=== PATIENT | male | born 1995 | race Caucasian/White ===

== ENCOUNTER 2020-11-27 22:54 | Emergency (ER) | payer MEDICAID, SELFPAY ==
--- NOTE | ~2020-11-27 | XR_ITS ---
EXAMINATION: XR HAND, RIGHT CLINICAL INFORMATION: Pain and swelling COMPARISON: None TECHNIQUE: PA, lateral, and oblique views of the right hand. XR/XR hand RT min 3V FINDINGS/IMPRESSION: No acute fracture or dislocation. Healed fracture deformity of the fifth metacarpal with residual volar angulation of the fifth metacarpal head. Soft tissue swelling dorsal to the metacarpals. No radiopaque foreign body.
[2020-11-27 23:07] VITALS: BP 142/96; PULSE 134; O2SAT 96
[2020-11-27 23:15] VITALS: BP 128/96; PULSE 113; RESP 22; TEMP 36.1; O2SAT 98
--- NOTE | 2020-11-27 23:20 | ED_ITS ---
HPI - Alcohol General Chief Complaint: ETOH/Substance Use Stated Complaint: OD Time Seen by Provider: 11/27/20 23:20 History of Present Illness HPI narrative: Patient 25 years old positive ETOH positive oxycodone, positive marijuana. Found sleeping on the street. Woken up by PD sent in for further evaluation. Patient denies any suicidal homicidal ideation. Has no specific complaints. Related Data Allergies Allergy/AdvReac Type Severity Reaction Status Date / Time No Known Allergies Allergy Unverified 11/03/19 16:41 Review of Systems Review of Systems: No fever no chills no chest pain or shortness of breath no diaphoresis All systems reviewed otherwise negative [facility] Past Medical History Attestation statement: The following information was validated with the patient. Social History Social History Advance Directives: No Advance Directives Information Provided: No Physical Exam Vital Signs: Vital Signs: Last Vital Signs Temp 97 F 11/27/20 23:15 Pulse 113 H 11/27/20 23:15 Resp 22 H 11/27/20 23:15 BP 128/96 H 11/27/20 23:15 Pulse Ox 98 11/27/20 23:15 Body Mass Index 25.6 Appearance: Alert. Oriented X3. No acute distress. Eyes: Pupils equal, round and reactive to light. ENT: Pharynx normal. Neck: Normal inspection. Neck supple. No lymph nodes noted. No crepitus CVS: Normal heart rate and rhythm. Pulses normal. Normal S1 and S2 Respiratory: No respiratory distress. Breath sounds normal. No Wheezing. No rales Abdomen: Soft and nontender. No rigidity. No distention. good BS x4 Skin: Skin warm and dry. Normal skin color. Normal skin turgor. Extremities: No lower extremity edema. Neurovascular intact to all extremities. No Lacerations. No Rash Neuro: Oriented X 3. No motor deficit. No sensory deficit. Moving all extermities. No slurred speech MDM - Alcohol MDM Narrative Medical decision making narrative: Awaiting clinical sobriety. Will have patient contact family member. If no family can be reached. Patient will stay in the ED until he is fully sober peer Differential Diagnosis Differential diagnosis: Likely alcohol dependence Medical Records Attestation: I reviewed the patient's medical records. Lab Data Attestation: I reviewed the patient's lab results. Result diagrams: 11/28/20 00:14 11/28/20 00:14 Labs: Lab Results 11/28/20 11/28/20 11/28/20 Range/Units 00:14 00:14 00:14 WBC 3.4 L (4.8-10.8) X10*3/uL RBC 4.45 L (4.60-5.80) X10*6/uL Hgb 13.7 L (14.0-18.0) g/dl Hct 39.4 L (42-52) % MCV 88.5 (80-98) fL MCH 30.8 (27.0-33.0) pg MCHC 34.8 (31.0-36.0) g/dl RDW 12.3 (11.0-16.0) % Plt Count 205 (160-400) X10*3/uL MPV 9.5 (9.4-12.4) fL Immature Gran % (Auto) 0.3 (0.0-0.4) % Neut % (Auto) 48.1 (45-73) % Lymph % (Auto) 38.8 (20-40) % [place] % (Auto) 12.2 H (2-11) % Eos % (Auto) 0.3 (0-4) % Baso % (Auto) 0.3 (0-2) % Lymph # (Auto) 1.3 (1.2-4.9) X10*3/uL [place] # (Auto) 0.4 (0.1-1.2) X10*3/uL Eos # (Auto) 0.0 (0.0-0.4) X10*3/uL Baso # (Auto) 0.0 (0.0-0.2) X10*3/uL Abs Immat Gran (auto) 0.01 (0.00-0.03) X10*3/uL Absolute Neuts (auto) 1.7 L (2.0-8.3) X10*3/uL Absolute Nucleated RBC 0.000 (0.0-0.012) X10*3/uL Nucleated RBC % (auto) 0.0 (0.0-0.2) /100WBC Sodium 143 (135-145) mmol/L Potassium 3.5 (3.3-5.1) mmol/L Chloride 110 H (96-108) mmol/L Carbon Dioxide 25 (22-29) mmol/L Anion Gap 12 (12-20) BUN 6 L (9-16) mg/dL Creatinine 0.78 (0.5-1.4) mg/dL Estim Creat Clear Calc TNP Estimated GFR > 60 Random Glucose 87 (60-115) mg/dL Calcium 8.7 (8.4-10.2) mg/dL Total Bilirubin 0.2 (0.0-1.0) mg/dL AST 47 H (5-37) U/L ALT 36 (0-40) U/L Alkaline Phosphatase 172 H (39-117) U/L Total Protein 8.1 H (6.5-8.0) g/dL Albumin 4.6 (3.5-5.0) g/dL Urine Opiates Screen Not Detected (Not Detect) Urine Fentanyl Screen POSITIVE H (Not Detect) Ur Barbiturates Screen Not Detected (Not Detect) Ur Phencyclidine Scrn Not Detected (Not Detect) Ur Amphetamines Screen Not Detected (Not Detect) U Benzodiazepines Scrn Not Detected (Not Detect) Urine Cocaine Screen POSITIVE H (Not Detect) U Marijuana (THC) Screen POSITIVE H (Not Detect) Ethyl Alcohol mg/dL COVID-19 ([facility]) (Negative) COVID-19 Clin Com 11/28/20 11/28/20 Range/Units 00:14 01:27 WBC (4.8-10.8) X10*3/uL RBC (4.60-5.80) X10*6/uL Hgb (14.0-18.0) g/dl Hct (42-52) % MCV (80-98) fL MCH (27.0-33.0) pg MCHC (31.0-36.0) g/dl RDW (11.0-16.0) % Plt Count (160-400) X10*3/uL MPV (9.4-12.4) fL Immature Gran % (Auto) (0.0-0.4) % Neut % (Auto) (45-73) % Lymph % (Auto) (20-40) % [place] % (Auto) (2-11) % Eos % (Auto) (0-4) % Baso % (Auto) (0-2) % Lymph # (Auto) (1.2-4.9) X10*3/uL [place] # (Auto) (0.1-1.2) X10*3/uL Eos # (Auto) (0.0-0.4) X10*3/uL Baso # (Auto) (0.0-0.2) X10*3/uL Abs Immat Gran (auto) (0.00-0.03) X10*3/uL Absolute Neuts (auto) (2.0-8.3) X10*3/uL Absolute Nucleated RBC (0.0-0.012) X10*3/uL Nucleated RBC % (auto) (0.0-0.2) /100WBC Sodium (135-145) mmol/L Potassium (3.3-5.1) mmol/L Chloride (96-108) mmol/L Carbon Dioxide (22-29) mmol/L Anion Gap (12-20) BUN (9-16) mg/dL Creatinine (0.5-1.4) mg/dL Estim Creat Clear Calc Estimated GFR Random Glucose (60-115) mg/dL Calcium (8.4-10.2) mg/dL Total Bilirubin (0.0-1.0) mg/dL AST (5-37) U/L ALT (0-40) U/L Alkaline Phosphatase (39-117) U/L Total Protein (6.5-8.0) g/dL Albumin (3.5-5.0) g/dL Urine Opiates Screen (Not Detect) Urine Fentanyl Screen (Not Detect) Ur Barbiturates Screen (Not Detect) Ur Phencyclidine Scrn (Not Detect) Ur Amphetamines Screen (Not Detect) U Benzodiazepines Scrn (Not Detect) Urine Cocaine Screen (Not Detect) U Marijuana (THC) Screen (Not Detect) Ethyl Alcohol 258 mg/dL COVID-19 ([facility]) Negative (Negative) COVID-19 Clin Com See Note Discharge Plan Discharge Clinical Impression: Alcoholic intoxication, Opioid abuse Patient Disposition: Home, Self-Care Instructions: Abuse of Alcohol (ED) Referrals: [facility] [Primary Care Provider] - 2 days
[2020-11-28 00:19] LABS: MANUAL DIFF FLAG NO
[2020-11-28 00:20] LABS: Basophils Percent Auto 0.3 % (0-2); Eosinophils Percent Auto 0.3 % (0-4); Hematocrit 39.4 % (42-52); Hemoglobin 13.7 g/dl (14.0-18.0); Imm Gran Abs Auto 0.01 X10*3/uL (0.00-0.03); Imm Gran Pct Auto 0.3 % (0.0-0.4); Lymphocytes Absolute Auto 1.3 X10*3/uL (1.2-4.9); Lymphocytes Percent Auto 38.8 % (20-40); Mean Corpuscular HGB Conc 34.8 g/dl (31.0-36.0); Mean Corpuscular Hemoglobin 30.8 pg (27.0-33.0); Mean Corpuscular Volume 88.5 fL (80-98); Mean Platelet Volume 9.5 fL (9.4-12.4); Monocytes Absolute Auto 0.4 X10*3/uL (0.1-1.2); Monocytes Percent Auto 12.2 % (2-11); Neutrophils Absolute Auto 1.7 X10*3/uL (2.0-8.3); Neutrophils Percent Auto 48.1 % (45-73); Platelet Count 205 X10*3/uL (160-400); Red Blood Count 4.45 X10*6/uL (4.60-5.80); Red Cell Distribution Width 12.3 % (11.0-16.0); White Blood Count 3.4 X10*3/uL (4.8-10.8)
[2020-11-28 00:34] LABS: Ethanol 258 mg/dL
[2020-11-28 00:38] LABS: Alanine Aminotransferase 36 U/L (0-40); Albumin Level 4.6 g/dL (3.5-5.0); Alkaline Phosphatase 172 U/L (39-117); Amphetamine Screen Urine Not Detected (Not Detect); Anion Gap 12 (12-20); Aspartate Amino Transferase 47 U/L (5-37); Barbiturates, Urine Not Detected (Not Detect); Benzodiazepines Screen Urine Not Detected (Not Detect); Bilirubin Total 0.2 mg/dL (0.0-1.0); Blood Urea Nitrogen 6 mg/dL (9-16); Calcium 8.7 mg/dL (8.4-10.2); Cannabinoid Screen Urine POSITIVE (Not Detect); Carbon Dioxide 25 mmol/L (22-29); Chloride 110 mmol/L (96-108); Cocaine Screen Urine POSITIVE (Not Detect); Estimated Glomerular Filt Rate > 60; Fentanyl, urine POSITIVE (Not Detect); Glucose Random 87 mg/dL (60-115); Opiate Screen Urine Not Detected (Not Detect); Phencyclidine Screen Urine Not Detected (Not Detect); Potassium 3.5 mmol/L (3.3-5.1); Sodium 143 mmol/L (135-145); Total Protein 8.1 g/dL (6.5-8.0)
[2020-11-28 01:05] VITALS: BMI 25.6
[2020-11-28] MEDS: LORazepam 1 MG TABLET 2 MG PO ×2 (01:31→11:48)
[2020-11-28 01:51] LABS: COVID-19 Test Negative (Negative)
[2020-11-28 02:47] VITALS: BP 122/78; PULSE 84; RESP 18; TEMP 36.6; O2SAT 96
--- NOTE | 2020-11-28 06:21 | PC.NURSE ---
Patient is currently sleeping, patient was transferred from main ED due to elopement risk, patient is here in POD till he izabella out. patient is not crises patient, Patient will be discharged in the morning,
--- NOTE | 2020-11-28 06:57 | PC.NURSE ---
patient appears to remain asleep at present with even unlabored breaths patient appears in no distress
[2020-11-28 09:50] VITALS: RESP 16
--- NOTE | 2020-11-28 10:27 | MHC.CARE ---
Patient is a 25 y/o, Turkmen speaking male who arrived at the [facility] [place] ED via ambulance after being found by the police department sleeping on the street. He was awoken by PD and sent to this facility for further evaluation.? ?Pt is positive for fentanyl, cocaine, marijuana and ETOH.? Pt has been medically cleared and is being assessed by the CARE Team to determine appropriate treatment recommendations. Pt is alert and oriented x4, but did require numerous prompts to get this pt awake and to remain awake during the screening.? Pt appears disheveled, is dressed in hospital attire, and appears his stated age.? Pt is minimally engaged in the assessment and appears to be actively trying to ignore CARE Team.? Pt is not help seeking, stating he ?doesn?t need anything?.? At times, pt pulls his blanket over his head, and only after several prompts will begin responding again.? Pt eye contact is intermittent, often looking away and/or covering his face with a blanket.? ?His speech is mumbled and slow.? Pt makes a hand gesture in response to how his sleep and appetite are, indicating ?ok? or ?varies?.? Pt declined to discuss his mood.? Pt?s affect is flat, appearing as though he is tired.? He denies SI, HI, and AVH.? Pt denied SI/HI upon arrival yesterday evening.? Pt does not appear to be responding to internal stimuli, nor does he appear delusional or psychotic.? Insight, judgement, memory, concentration and Impulse control cannot be effectively gauged as pt appears to be an unwilling participant in this screening.? CARE Team requested that the Recovery team meet with pt, which they did.? Pt?s level of engagement with Recovery Team was similar to his level of engagement with CARE Team. Pt does not meet inpatient level of care nor does he appear to be in crisis. ?
[2020-11-28] MEDS: Ondansetron ODT 4 MG TAB.RAPDIS TRANSLINGU (11:36)
--- NOTE | 2020-11-28 12:15 | MHC.RECOVSUP ---
Recovery Support note: Patient is a 25 year old Malagasy speaking male who presented to [facility] [place] found sleeping outside. Patient was cleared by CARE Team. This insurance underwriter sales and Environmental Engineering Assistant met with patient to discuss his substance use and treatment options. Patient was vague, reporting he drinks enough anywhere from 1-10 beers daily. Patient reports cocaine use and denies opiate use. Informed patient that he tested positive for fentanyl and discussed harm reduction. Patient agreeable to going anywhere for detox. [facility] has accepted patient for ATS admission. This insurance underwriter sales called to confirm name and date of and that patient is in fact accepted. Patient to be transported to [facility] by Mariaelena Hancock. Discussed case with patient's RN and ED provider.
--- NOTE | 2020-11-28 12:16 | MHC.RECOVSUP ---
? Reason for consult:Continuity of care o Current location:[facility] o Identified substance use concern:ETOH, cocaine - Withdrawal - Seeking ATS (detox) - Support ? Intervention: o ATS bed search started/completed/in process ? Plan: o o Bed search in progress to o Patient to follow up with [facility] after discharge ? Additional information:Pt. being sent to [facility]
== END 2020-11-28 13:26 | disposition home or self-care (01) ==
PROVIDERS: Emergency Provider Emergency Medicine Emergency Medical Services
DX: F10.129 Alcohol abuse with intoxication, unspecified (principal); Y90.8 Blood alcohol level of 240 mg/100 ml or more; M79.641 Pain in right hand; F11.10 Opioid abuse, uncomplicated; Z71.51 Drug abuse counseling and surveillance of drug abuser; Z20.822 Contact with and (suspected) exposure to COVID-19; Z79.899 Other long term (current) drug therapy
CPT/HCPCS: 36415; 73130; 80053; 80307; 82077; 85025; 87635; 99284

== ENCOUNTER 2021-03-28 12:19 | Emergency (ER) | payer MEDICAID, SELFPAY ==
[2021-03-28] VITALS (11 sets, daily range): BP systolic 108–130; BP diastolic 55–72; PULSE 80–140; RESP 10–28; TEMP 36.7–37; O2SAT 96–99; BMI 27.4
--- NOTE | 2021-03-28 12:32 | ECG_ITS ---
Test Reason : AMS Blood Pressure : / mmHG Vent. Rate : 123 BPM Atrial Rate : 123 BPM P-R Int : 130 ms QRS Dur : 088 ms QT Int : 340 ms P-R-T Axes : 076 056 016 degrees QTc Int : 486 ms Sinus tachycardia Possible Left atrial enlargement Borderline ECG When compared with ECG of 04-MAR-2015 10:19, Vent. rate has increased BY 47 BPM T wave inversion now evident in Inferior leads Nonspecific T wave abnormality now evident in Lateral leads Referred By: Antonietta Ford Electronically Signed By:Reggie Fleming
--- NOTE | 2021-03-28 12:42 | ED_ITS ---
HPI - Alcohol General Chief Complaint: ETOH/Substance Use <COOPER Pena - Last Filed: 03/28/21 20:38> Stated Complaint: AMS S/P SMOKING DRUG SUBSTANCES PER EMS <COOPER Pena - Last Filed: 03/28/21 20:38> Time Seen by Provider: 03/28/21 12:25 <COOPER Pena - Last Filed: 03/28/21 20:38> Source: patient and EMS <COOPER Pena - Last Filed: 03/28/21 20:38> Mode of arrival: EMS <COOPER Pena - Last Filed: 03/28/21 20:38> History of Present Illness HPI narrative: 25-year-old male with past medical history of substance abuse BIB[place] with suspected substance abuse. Patient admits to drinking fireball, and smoking marijuana. Found standing in park, no known trauma, was with mother. History limited secondary to patient's acute mental status. Denies SI/HI <COOPER Pena - Last Filed: 03/28/21 20:38> Last drink: Unknown <COOPER Pena - Last Filed: 03/28/21 20:38> Related Data Allergies/Adverse Reactions: Allergies Allergy/AdvReac Type Severity Reaction Status Date / Time No Known Allergies Allergy Unverified 11/03/19 16:41 <COOPER Pena - Last Filed: 03/28/21 20:38> Review of Systems Review of Systems: Constitutional: No Fever, No Chills, +diaphoresis Cardiovascular: No Chest Pain, No SOB Respiratory: No Cough Gastrointestinal: + Nausea, No Vomiting, No Abdominal pain Musculoskeletal: No joint pain <COOPER Pena - Last Filed: 03/28/21 20:38> Yes all other systems are reviewed and are negative <COOPER Pena - Last Filed: 03/28/21 20:38> [facility] Past Medical History Attestation statement: The following information was validated with the patient. <COOPER Pena - Last Filed: 03/28/21 20:38> Social History Social History: Social History Advance Directives: No Advance Directives Information Provided: No <COOPER Pena - Last Filed: 03/28/21 20:38> Physical Exam Vital Signs: Vital Signs: Last Vital Signs Temp 98.1 F 03/28/21 14:05 Pulse 99 03/28/21 17:55 Resp 14 03/28/21 17:55 BP 108/62 03/28/21 17:55 Pulse Ox 97 03/28/21 17:55 BMI result Body Mass Index 27.4 <COOPER Pena - Last Filed: 03/28/21 20:38> Vital Signs: Last Vital Signs Temp 98.1 F 03/28/21 14:05 Pulse 99 03/28/21 17:55 Resp 14 03/28/21 17:55 BP 108/62 03/28/21 17:55 Pulse Ox 97 03/28/21 17:55 BMI result Body Mass Index 27.4 <COOPER Rosas - Last Filed: 03/28/21 21:15> Const: Other: +under the influence, +diaphoretic, self inducing emesis, dancing/erratic behavior <COOPER Pena - Last Filed: 03/28/21 20:38> General: cooperative (mostly) <COOPER Pena - Last Filed: 03/28/21 20:38> HENMT: Head: Yes normal to inspection and Yes atraumatic <COOPER Pena - Last Filed: 03/28/21 20:38> Ears: hearing grossly normal bilaterally <COOPER Pena - Last Filed: 12/07 20:38> General nose exam: Normal external nose present <COOPER Pena - Last Filed: 03/28/21 20:38> Face and sinus: Yes normal facial exam <COOPER Pena - Last Filed: 03/28/21 20:38> Eyes: General: appearance normal, both eyes and all related structures <COOPER Pena - Last Filed: 03/28/21 20:38> Pupils: Pinpoint pupils bilaterally <COOPER Pena - Last Filed: 03/28/21 20:38> EOM: EOMs intact bilaterally <COOPER Pena - Last Filed: 03/28/21 20:38> Neck: Neck: Yes normal visual inspection and Yes no meningeal signs <COOPER Pena - Last Filed: 03/28/21 20:38> Resp: Effort & Inspection: normal respiratory effort and no respiratory distress <COOPER Pena - Last Filed: 03/28/21 20:38> Cardio: Rate: regular rate <COOPER Pena - Last Filed: 03/28/21 20:38> GI: Inspection: Yes normal to inspection <COOPER Pena - Last Filed: 03/28/21 20:38> Palpation (GI): Soft to palpation, nontender and no guarding <COOPER Pena - Last Filed: 03/28/21 20:38> Skin: Rashes: no rashes <COOPER Pena - Last Filed: 03/28/21 20:38> Wounds: no wounds <COOPER Pena - Last Filed: 03/28/21 20:38> Neuro: General: no meningeal signs <COOPER Pena - Last Filed: 03/28/21 20:38> Gait exam (Neuro): Normal gait present <COOPER Pena - Last Filed: 03/28/21 20:38> Extrem: General: Yes normal to inspection <COOPER Pena - Last Filed: 03/28/21 20:38> Psych: Appearance: disheveled <COOPER Pena - Last Filed: 03/28/21 20:38> Speech and movement: Pressured speech present <COOPER Pena - Last Filed: 03/28/21 20:38> Course Course Course Narrative: -1248--patient jumping around/walking around emergency department, standing in stretcher, danger to himself and staff > medically restrained with 2mg IM Ativan and 5mg IM Haldol >> additional sedation needed, 50mg IM Benadryl given with good result. Patient sleeping comfortably on the monitor, AK applied for support -1516--no leukocytosis. H&H with mild drop from priors > will obtain 3 hour repeat. AST acute on chronically elevated. On re-evaluation abdomen soft/nontender. Patient arousable to voice/touch. Still drowsy. Vital signs stable. 1:1 sitter at bedside -1640--patient more arousable. Awake, tolerating p.o. nitish eron. Denies SI/HI -1744--4hr repeat H&H stable -2032--tox screen positive for opiates, fentanyl, cocaine, and marijuana. On re-evaluation patient sleeping comfortably, arousable to voice. Patient is unable to find a ride home at this time. Will continue to metabolize. Will DC patient with to go Narcan -2100--ED care transferred to COOPER Reyez pending clinical sobriety and DC home. Physician observation initiated as patient needs more time to metabolize <COOPER Moy - Last Filed: 03/28/21 20:38> Reevaluation(s) Reevaluation #1: Patient is currently ambulating with a steady gait, girlfriend and patient agreed that patient will be discharged to the waiting room and he will likely walk home. Comfortable with plan as patient is ambulating with a steady gait, alert and oriented x3. Will discharge at this time. <COOPER Rosas - Last Filed: 03/28/21 21:15> Time: 21:15 <COOPER Rosas - Last Filed: 03/28/21 21:15> MDM - Alcohol MDM Narrative Medical decision making narrative: 25-year-old male with past medical history of substance abuse BIBA [place] park by PD with suspected substance abuse. On exam under the influence, diaphoretic, acting erratically, self inducing emesis which appears blood tinged > likely Ioana-[place]. Lower concern for GI bleed. diaphoretic. DUQUE. Ambulating. No signs of trauma Plan: EKG, Labs, RICK, Medications <COOPER Pena - Last Filed: 03/28/21 20:38> Medical Records Attestation: I reviewed the patient's medical records. <COOPER Pena Last Filed: 03/28/21 20:38> Lab Data Attestation: I reviewed the patient's lab results. <COOPER Pena Last Filed: 03/28/21 20:38> Result diagrams: : 03/28/21 17:06 03/28/21 13:33 <COOPER Pena - Last Filed: 03/28/21 20:38> Labs: Lab Results 03/28/21 03/28/21 03/28/21 Range/Units 13:33 13:33 13:33 WBC 9.2 (4.8-10.8) X10*3/uL RBC 3.94 L (4.60-5.80) X10*6/uL Hgb 11.4 L (14.0-18.0) g/dl Hct 35.2 L (42.0-52.0) % MCV 89.3 (80.0-98.0) fL MCH 28.9 (27.0-33.0) pg MCHC 32.4 (31.0-36.0) g/dl RDW 11.9 (11.0-16.0) % Plt Count 174 (160-400) X10*3/uL MPV 10.0 (9.4-12.4) fL Immature Gran % (Auto) 0.3 (0.0-0.4) % Neut % (Auto) 87.8 H (45-73) % Lymph % (Auto) 5.1 L (20-40) % [place] % (Auto) 6.7 (2-11) % Eos % (Auto) 0.0 (0-4) % Baso % (Auto) 0.1 (0-2) % Lymph # (Auto) 0.5 L (1.2-4.9) X10*3/uL [place] # (Auto) 0.6 (0.1-1.2) X10*3/uL Eos # (Auto) 0.0 (0.0-0.4) X10*3/uL Baso # (Auto) 0.0 (0.0-0.2) X10*3/uL Abs Immat Gran (auto) 0.03 (0.00-0.03) X10*3/uL Absolute Neuts (auto) 8.1 (2.0-8.3) x10*3/uL Absolute Nucleated RBC 0.000 (0.0-0.012) X10*3/uL Nucleated RBC % (auto) 0.0 (0.0-0.2) /100WBC Sodium 142 (135-145) mmol/L Potassium 3.5 (3.3-5.1) mmol/L Chloride 102 (96-108) mmol/L Carbon Dioxide 27 (22-29) mmol/L Anion Gap 17 (12-20) BUN 13 (9-16) mg/dL Creatinine 1.17 (0.5-1.4) mg/dL Estim Creat Clear Calc 93.5 Estimated GFR > 60 Random Glucose 95 (60-115) mg/dL Calcium 9.4 D (8.4-10.2) mg/dL Total Bilirubin 1.1 H (0.0-1.0) mg/dL Direct Bilirubin 0.4 (0.0-0.5) mg/dL AST 69 H (5-37) U/L ALT 36 (0-40) U/L Alkaline Phosphatase 125 H D (39-117) U/L Total Protein 7.6 (6.5-8.0) g/dL Albumin 4.4 (3.5-5.0) g/dL Lipase (8-78) U/L Urine Opiates Screen (Not Detect) Urine Fentanyl Screen (Not Detect) Ur Barbiturates Screen (Not Detect) Ur Phencyclidine Scrn (Not Detect) Ur Amphetamines Screen (Not Detect) U Benzodiazepines Scrn (Not Detect) Urine Cocaine Screen (Not Detect) U Marijuana (THC) Screen (Not Detect) Ethyl Alcohol < 10 mg/dL 03/28/21 03/28/21 03/28/21 Range/Units 13:33 17:06 18:59 WBC 8.7 (4.8-10.8) X10*3/uL RBC 3.89 L (4.60-5.80) X10*6/uL Hgb 11.3 L (14.0-18.0) g/dl Hct 34.9 L (42.0-52.0) % MCV 89.7 (80.0-98.0) fL MCH 29.0 (27.0-33.0) pg MCHC 32.4 (31.0-36.0) g/dl RDW 12.0 (11.0-16.0) % Plt Count 180 (160-400) X10*3/uL MPV 10.4 (9.4-12.4) fL Immature Gran % (Auto) 0.2 (0.0-0.4) % Neut % (Auto) 74.2 H (45-73) % Lymph % (Auto) 14.9 L (20-40) % [place] % (Auto) 10.4 (2-11) % Eos % (Auto) 0.1 (0-4) % Baso % (Auto) 0.2 (0-2) % Lymph # (Auto) 1.3 (1.2-4.9) X10*3/uL [place] # (Auto) 0.9 (0.1-1.2) X10*3/uL Eos # (Auto) 0.0 (0.0-0.4) X10*3/uL Baso # (Auto) 0.0 (0.0-0.2) X10*3/uL Abs Immat Gran (auto) 0.02 (0.00-0.03) X10*3/uL Absolute Neuts (auto) 6.5 (2.0-8.3) x10*3/uL Absolute Nucleated RBC 0.000 (0.0-0.012) X10*3/uL Nucleated RBC % (auto) 0.0 (0.0-0.2) /100WBC Sodium (135-145) mmol/L Potassium (3.3-5.1) mmol/L Chloride (96-108) mmol/L Carbon Dioxide (22-29) mmol/L Anion Gap (12-20) BUN (9-16) mg/dL Creatinine (0.5-1.4) mg/dL Estim Creat Clear Calc Estimated GFR Random Glucose (60-115) mg/dL Calcium (8.4-10.2) mg/dL Total Bilirubin (0.0-1.0) mg/dL Direct Bilirubin (0.0-0.5) mg/dL AST (5-37) U/L ALT (0-40) U/L Alkaline Phosphatase (39-117) U/L Total Protein (6.5-8.0) g/dL Albumin (3.5-5.0) g/dL Lipase 15 (8-78) U/L Urine Opiates Screen POSITIVE H (Not Detect) Urine Fentanyl Screen POSITIVE H (Not Detect) Ur Barbiturates Screen Not Detected (Not Detect) Ur Phencyclidine Scrn Not Detected (Not Detect) Ur Amphetamines Screen Not Detected (Not Detect) U Benzodiazepines Scrn Not Detected (Not Detect) Urine Cocaine Screen POSITIVE H (Not Detect) U Marijuana (THC) Screen POSITIVE H (Not Detect) Ethyl Alcohol mg/dL <COOPER Pena - Last Filed: 03/28/21 20:38> Lab Results 03/28/21 03/28/21 03/28/21 Range/Units 13:33 13:33 13:33 WBC 9.2 (4.8-10.8) X10*3/uL RBC 3.94 L (4.60-5.80) X10*6/uL Hgb 11.4 L (14.0-18.0) g/dl Hct 35.2 L (42.0-52.0) % MCV 89.3 (80.0-98.0) fL MCH 28.9 (27.0-33.0) pg MCHC 32.4 (31.0-36.0) g/dl RDW 11.9 (11.0-16.0) % Plt Count 174 (160-400) X10*3/uL MPV 10.0 (9.4-12.4) fL Immature Gran % (Auto) 0.3 (0.0-0.4) % Neut % (Auto) 87.8 H (45-73) % Lymph % (Auto) 5.1 L (20-40) % [place] % (Auto) 6.7 (2-11) % Eos % (Auto) 0.0 (0-4) % Baso % (Auto) 0.1 (0-2) % Lymph # (Auto) 0.5 L (1.2-4.9) X10*3/uL [place] # (Auto) 0.6 (0.1-1.2) X10*3/uL Eos # (Auto) 0.0 (0.0-0.4) X10*3/uL Baso # (Auto) 0.0 (0.0-0.2) X10*3/uL Abs Immat Gran (auto) 0.03 (0.00-0.03) X10*3/uL Absolute Neuts (auto) 8.1 (2.0-8.3) x10*3/uL Absolute Nucleated RBC 0.000 (0.0-0.012) X10*3/uL Nucleated RBC % (auto) 0.0 (0.0-0.2) /100WBC Sodium 142 (135-145) mmol/L Potassium 3.5 (3.3-5.1) mmol/L Chloride 102 (96-108) mmol/L Carbon Dioxide 27 (22-29) mmol/L Anion Gap 17 (12-20) BUN 13 (9-16) mg/dL Creatinine 1.17 (0.5-1.4) mg/dL Estim Creat Clear Calc 93.5 Estimated GFR > 60 Random Glucose 95 (60-115) mg/dL Calcium 9.4 D (8.4-10.2) mg/dL Total Bilirubin 1.1 H (0.0-1.0) mg/dL Direct Bilirubin 0.4 (0.0-0.5) mg/dL AST 69 H (5-37) U/L ALT 36 (0-40) U/L Alkaline Phosphatase 125 H D (39-117) U/L Total Protein 7.6 (6.5-8.0) g/dL Albumin 4.4 (3.5-5.0) g/dL Lipase (8-78) U/L Urine Opiates Screen (Not Detect) Urine Fentanyl Screen (Not Detect) Ur Barbiturates Screen (Not Detect) Ur Phencyclidine Scrn (Not Detect) Ur Amphetamines Screen (Not Detect) U Benzodiazepines Scrn (Not Detect) Urine Cocaine Screen (Not Detect) U Marijuana (THC) Screen (Not Detect) Ethyl Alcohol < 10 mg/dL 03/28/21 03/28/21 03/28/21 Range/Units 13:33 17:06 18:59 WBC 8.7 (4.8-10.8) X10*3/uL RBC 3.89 L (4.60-5.80) X10*6/uL Hgb 11.3 L (14.0-18.0) g/dl Hct 34.9 L (42.0-52.0) % MCV 89.7 (80.0-98.0) fL MCH 29.0 (27.0-33.0) pg MCHC 32.4 (31.0-36.0) g/dl RDW 12.0 (11.0-16.0) % Plt Count 180 (160-400) X10*3/uL MPV 10.4 (9.4-12.4) fL Immature Gran % (Auto) 0.2 (0.0-0.4) % Neut % (Auto) 74.2 H (45-73) % Lymph % (Auto) 14.9 L (20-40) % [place] % (Auto) 10.4 (2-11) % Eos % (Auto) 0.1 (0-4) % Baso % (Auto) 0.2 (0-2) % Lymph # (Auto) 1.3 (1.2-4.9) X10*3/uL [place] # (Auto) 0.9 (0.1-1.2) X10*3/uL Eos # (Auto) 0.0 (0.0-0.4) X10*3/uL Baso # (Auto) 0.0 (0.0-0.2) X10*3/uL Abs Immat Gran (auto) 0.02 (0.00-0.03) X10*3/uL Absolute Neuts (auto) 6.5 (2.0-8.3) x10*3/uL Absolute Nucleated RBC 0.000 (0.0-0.012) X10*3/uL Nucleated RBC % (auto) 0.0 (0.0-0.2) /100WBC Sodium (135-145) mmol/L Potassium (3.3-5.1) mmol/L Chloride (96-108) mmol/L Carbon Dioxide (22-29) mmol/L Anion Gap (12-20) BUN (9-16) mg/dL Creatinine (0.5-1.4) mg/dL Estim Creat Clear Calc Estimated GFR Random Glucose (60-115) mg/dL Calcium (8.4-10.2) mg/dL Total Bilirubin (0.0-1.0) mg/dL Direct Bilirubin (0.0-0.5) mg/dL AST (5-37) U/L ALT (0-40) U/L Alkaline Phosphatase (39-117) U/L Total Protein (6.5-8.0) g/dL Albumin (3.5-5.0) g/dL Lipase 15 (8-78) U/L Urine Opiates Screen POSITIVE H (Not Detect) Urine Fentanyl Screen POSITIVE H (Not Detect) Ur Barbiturates Screen Not Detected (Not Detect) Ur Phencyclidine Scrn Not Detected (Not Detect) Ur Amphetamines Screen Not Detected (Not Detect) U Benzodiazepines Scrn Not Detected (Not Detect) Urine Cocaine Screen POSITIVE H (Not Detect) U Marijuana (THC) Screen POSITIVE H (Not Detect) Ethyl Alcohol mg/dL <COOPER Rosas - Last Filed: 03/28/21 21:15> ECG Data ECG #1: Attestation: I personally reviewed and interpreted this ECG as follows: <COOPER Pena - Last Filed: 03/28/21 20:38> ECG interpretation date: 03/28/21 <COOPER Pena - Last Filed: 03/28/21 20:38> ECG interpretation time: 15:33 <COOPER Pena - Last Filed: 03/28/21 20:38> Interpretation: EKG sinus tachycardia rate of 123. T-wave inversions in inferior leads. Nonspecific T-wave abnormality in lateral leads. No STEMI. <COOPER Pena - Last Filed: 03/28/21 20:38> Critical Care Time Critical Care Time Critical Care Time: No <COOPER Rosas - Last Filed: 03/28/21 21:15> Discharge Plan Discharge Clinical Impression: Polysubstance abuse <COOPER Pena - Last Filed: 03/28/21 20:38> Patient Disposition: Home, Self-Care <COOPER Pena - Last Filed: 03/28/21 20:38> Instructions: Polysubstance Abuse (ED) <COOPER Pena - Last Filed: 03/28/21 20:38> Additional Instructions: Do not do drugs or alcohol it can kill you please follow-up with your doctor If you have thoughts of hurting herself or others please return to the ED <COOPER Pena Last Filed: 03/28/21 20:38> Referrals: [facility] [Physician] - 2 [facility] [Primary Care Provider] - 2 days <COOPER Pena - Last Filed: 03/28/21 20:38>
[2021-03-28] MEDS: LORazepam 2 MG/ML VIAL IM (12:50)
[2021-03-28] MEDS: Haloperidol Lactate 5 MG/ML VIAL IM (12:50)
[2021-03-28] MEDS: diphenhydrAMINE HCL 50 MG/ML VIAL IM (13:00)
--- NOTE | 2021-03-28 13:10 | MHC.RECOVSUP ---
? Reason for consult:Recovery Support o Current location:ED6 o Identified substance use concern:ETOH,Marijuana - Overdose - Support ? Intervention: o ? Plan: ? Additional information:Patient too impaired to cooperate in assessment at this time.
[2021-03-28 13:38] LABS: MANUAL DIFF FLAG NO
[2021-03-28 13:47] LABS: Basophils Percent Auto 0.1 % (0-2); Hematocrit 35.2 % (42.0-52.0); Hemoglobin 11.4 g/dl (14.0-18.0); Imm Gran Abs Auto 0.03 X10*3/uL (0.00-0.03); Imm Gran Pct Auto 0.3 % (0.0-0.4); Lymphocytes Absolute Auto 0.5 X10*3/uL (1.2-4.9); Lymphocytes Percent Auto 5.1 % (20-40); Mean Corpuscular HGB Conc 32.4 g/dl (31.0-36.0); Mean Corpuscular Hemoglobin 28.9 pg (27.0-33.0); Mean Corpuscular Volume 89.3 fL (80.0-98.0); Monocytes Absolute Auto 0.6 X10*3/uL (0.1-1.2); Monocytes Percent Auto 6.7 % (2-11); Neutrophils Absolute Auto 8.1 x10*3/uL (2.0-8.3); Neutrophils Percent Auto 87.8 % (45-73); Platelet Count 174 X10*3/uL (160-400); Red Blood Count 3.94 X10*6/uL (4.60-5.80); Red Cell Distribution Width 11.9 % (11.0-16.0); White Blood Count 9.2 X10*3/uL (4.8-10.8)
[2021-03-28 14:01] LABS: Ethanol < 10 mg/dL
[2021-03-28 14:04] LABS: Lipase 15 U/L (8-78)
[2021-03-28 14:05] LABS: Alanine Aminotransferase 36 U/L (0-40); Albumin Level 4.4 g/dL (3.5-5.0); Alkaline Phosphatase 125 U/L (39-117); Anion Gap 17 (12-20); Aspartate Amino Transferase 69 U/L (5-37); Bilirubin Direct 0.4 mg/dL (0.0-0.5); Bilirubin Total 1.1 mg/dL (0.0-1.0); Blood Urea Nitrogen 13 mg/dL (9-16); Calcium 9.4 mg/dL (8.4-10.2); Carbon Dioxide 27 mmol/L (22-29); Chloride 102 mmol/L (96-108); Creatinine Clr Calc Pharmacy 93.5; Estimated Glomerular Filt Rate > 60; Glucose Random 95 mg/dL (60-115); Potassium 3.5 mmol/L (3.3-5.1); Sodium 142 mmol/L (135-145); Total Protein 7.6 g/dL (6.5-8.0)
[2021-03-28] MEDS: 0.9 % Sodium Chloride 1,000 ML 999 ML IV ×2 (14:22)
--- NOTE | 2021-03-28 15:35 | PC.NURSE ---
PT ARRIVED TO ED WITH DRUG OVER DOSE, PT WAS DIAPHORETIC AGITATED, INCREASED ACTIVITY, UNABLE TO CONTROL BODY MOVEMENTS REQUIRING SEDATION CURRENTLY SLEEPING, WITH SITTER AT BEDSIDE FOR SAFETY
[2021-03-28 17:11] LABS: MANUAL DIFF FLAG NO
[2021-03-28 17:14] LABS: Basophils Percent Auto 0.2 % (0-2); Eosinophils Percent Auto 0.1 % (0-4); Hematocrit 34.9 % (42.0-52.0); Hemoglobin 11.3 g/dl (14.0-18.0); Imm Gran Abs Auto 0.02 X10*3/uL (0.00-0.03); Imm Gran Pct Auto 0.2 % (0.0-0.4); Lymphocytes Absolute Auto 1.3 X10*3/uL (1.2-4.9); Lymphocytes Percent Auto 14.9 % (20-40); Mean Corpuscular HGB Conc 32.4 g/dl (31.0-36.0); Mean Corpuscular Volume 89.7 fL (80.0-98.0); Mean Platelet Volume 10.4 fL (9.4-12.4); Monocytes Absolute Auto 0.9 X10*3/uL (0.1-1.2); Monocytes Percent Auto 10.4 % (2-11); Neutrophils Absolute Auto 6.5 x10*3/uL (2.0-8.3); Neutrophils Percent Auto 74.2 % (45-73); Platelet Count 180 X10*3/uL (160-400); Red Blood Count 3.89 X10*6/uL (4.60-5.80); White Blood Count 8.7 X10*3/uL (4.8-10.8)
[2021-03-28 19:19] LABS: Amphetamine Screen Urine Not Detected (Not Detect); Barbiturates, Urine Not Detected (Not Detect); Benzodiazepines Screen Urine Not Detected (Not Detect); Cannabinoid Screen Urine POSITIVE (Not Detect); Cocaine Screen Urine POSITIVE (Not Detect); Fentanyl, urine POSITIVE (Not Detect); Opiate Screen Urine POSITIVE (Not Detect); Phencyclidine Screen Urine Not Detected (Not Detect)
[2021-03-28] MEDS: Naloxone HCl Nasal TAKE HOME 4 MG SPRAY NOSTRILALT (23:49)
== END 2021-03-29 00:15 | disposition home or self-care (01) ==
PROVIDERS: Physician Assistant; Emergency Provider Emergency Medicine Emergency Medical Services
DX: F10.10 Alcohol abuse, uncomplicated (principal); Y90.0 Blood alcohol level of less than 20 mg/100 ml; F11.19 Opioid abuse with unspecified opioid-induced disorder; F12.90 Cannabis use, unspecified, uncomplicated; F14.10 Cocaine abuse, uncomplicated; Z79.899 Other long term (current) drug therapy; Z71.51 Drug abuse counseling and surveillance of drug abuser
CPT/HCPCS: 36415; 80048; 80076; 80307; 82077; 83690; 85025; 93005; 96360; 96361; 96372; 99284; 99285; J1200; J2060

== ENCOUNTER 2021-08-03 20:53 | Emergency (ER) | payer MEDICAID, SELFPAY ==
[2021-08-03 21:11] VITALS: BP 170/102; PULSE 125; O2SAT 95
[2021-08-03 21:14] VITALS: BMI 21.4
[2021-08-03 21:35] VITALS: BP 178/112; PULSE 86; RESP 20; TEMP 36.4; O2SAT 93
--- NOTE | 2021-08-03 21:46 | MHC.RECOVSUP ---
Addendum entered by Gordon Anderson 08/03/21 21:51: Gave patient community resources. Original Note: ? Reason for consult:Recovery Support o [facility] o Identified substance use concern:Polysubstance ([place]) - Withdrawal - Support ? Intervention: o MAT started or to be started o Community resources provided o Harm reduction discussion ? Plan: o Referral to [facility] o Patient to follow up with [facility] after discharge ? Additional information:Patient has a percocet substance use disorder, Patient wants to try an IOP and MAT in the form of Suboxone
--- NOTE | 2021-08-03 22:58 | ED.ALCOHOL ---
HPI - Alcohol General Chief Complaint: ETOH/Substance Use Stated Complaint: etoh and drug use Time Seen by Provider: 08/03/21 22:45 Source: patient and EMS Mode of arrival: EMS Limitations: no limitations History of Present Illness HPI narrative: 25-year-old male here seeking resources for detox. Patient tells me that he uses cocaine and Percocets daily. His last use was prior to arrival. No IV drug abuse. He also drinks alcohol occasionally. He denies any suicidal thoughts. No physical complaints. He did have an episode of vomiting on arrival but tells me this happens a few drinks alcohol. He tells me earlier this evening he had 3 [place] [employer] Related Data Allergies Allergy/AdvReac Type Severity Reaction Status Date / Time No Known Allergies Allergy Unverified 11/03/19 16:41 Review of Systems Review of Systems: Yes all other systems are reviewed and are negative Constitutional: Constitutional: Reports no additional constitutional complaints, Denies body ache(s), Denies chills, Denies fever(s), Denies headache(s) and Denies weakness Eyes: Eyes: Reports no additional eye complaints and Denies change in vision ENT: Reports system reviewed and no additional complaints, except as documented, Denies dizziness, Denies headache(s), Denies nasal congestion, Denies nasal discharge and Denies neck pain Cardiovascular: Cardiovascular: Reports no additional cardiovascular complaints, Denies chest pain, Denies leg edema and Denies dyspnea Respiratory: Respiratory: Reports no additional respiratory complaints, Denies cough and Denies dyspnea Gastrointestinal: Gastrointestinal: Reports no additional gastrointestinal complaints, Denies abdominal pain, Denies diarrhea, Reports nausea and Reports vomiting Genitourinary: Genitourinary: Denies urinary incontinence Musculoskeletal: Musculoskeletal: Reports no additional musculoskeletal complaints, Denies back pain, Denies arthralgias, Denies joint swelling, Denies neck pain, Denies numbness and Denies tingling Integumentary/Breasts: Skin/Breast: Reports system reviewed and no additional complaints, except as docu and Denies rash Neurologic: Reports system reviewed and no additional complaints, except as documented, Denies dizziness, Denies headache(s), Denies numbness, Denies tingling and Denies weakness PMF Past Medical History Attestation statement: The following information was validated with the patient. Source: old records reviewed and nursing notes reviewed Social History Social History Advance Directives: No Advance Directives Information Provided: No Physical Exam ED Vital Signs: Vital Signs - 24 hr 08/03/21 21:35 08/03/21 23:06 Temperature 97.6 F Pulse Rate 86 99 Respiratory Rate 20 18 Blood Pressure 178/112 H 168/89 H Pulse Oximetry 93 100 Oxygen Delivery Method Room Air Room Air BMI result Body Mass Index 21.4 Const General: cooperative, healthy appearing, comfortable and no acute distress Orientation/consciousness: patient oriented x3 Limitations: no limitations HENMT Head: Yes normal to inspection Ears: hearing grossly normal bilaterally General nose exam: Normal external nose present Face and sinus: Yes normal facial exam Mouth: Normal oral and palatal mucosa present Teeth and gingiva: dentition normal Throat: Yes posterior oropharynx normal Eyes General: appearance normal, both eyes and all related structures Pupils: Equal, round and reactive pupils present Neck Neck: Yes normal visual inspection Chest Chest palpation & inspection: normal inspection of the chest Resp Effort & Inspection: normal respiratory effort Auscultation: clear to auscultation bilaterally Cardio Rate: regular rate Rhythm: regular rhythm Peripheral pulses: Peripheral pulses 2+ throughout GI Inspection: Yes normal to inspection Palpation (GI): Soft to palpation and nontender Back/Spine/Pelvis Thoracic/Lumbar Spine: thoracic and lumbar spine normal to inspection Skin General skin exam: no rashes or lesions noted Neuro General: patient oriented x3 and moves all extremities Cranial nerves: Yes CN's II-XII intact bilaterally, Yes Equal, round and reactive pupils present, Yes Bilaterally intact EOM present, Yes Nystagmus not present, Yes Normal facial strength present and Yes Midline tongue present Cognition (Neuro): normal cognition Gait exam (Neuro): Normal gait present Motor exam (neuro): 5/5 motor strength present throughout Sensory Exam: Normal double simultaneous stimulation for sensation Extrem General: Yes normal to inspection, Yes no pedal edema and Yes no calf tenderness Course Course Course Narrative: Clinically patient is sober. He walked around the ER with me with a steady gait. He is eating and drinking. Plan for discharge home MDM - Alcohol MDM Narrative Medical decision making narrative: 25-year-old male with a history of polysubstance abuse here seeking some detox resources. He is not interested in any inpatient detox. He has no suicidal or homicidal ideations. He is interested in starting Suboxone. He did just take several Percocet this afternoon. He will be given referral to follow up with the [facility]. Clinically he is sober. He walks with a steady gait. His vitals are stable. He is eating and drinking. Plan for discharge home. Medical Records Attestation: I reviewed the patient's medical records. Lab Data Attestation: I reviewed the patient's lab results. Discharge Plan Discharge Clinical Impression: Polysubstance abuse Patient Disposition: Home, Self-Care Instructions: Polysubstance Abuse (ED) Additional Instructions: Follow-up with the [facility] Referrals: [facility] [Primary Care Provider] - Interventions: ED Discharge Assessment Last Done: 08/03/21 23:06 Discharge Date/Time: 08/03/21 23:07
[2021-08-03 23:06] VITALS: BP 168/89; PULSE 99; RESP 18; O2SAT 100
== END 2021-08-03 23:07 | disposition home or self-care (01) ==
PROVIDERS: Emergency Provider Emergency Medicine
DX: F19.10 Other psychoactive substance abuse, uncomplicated (principal)
CPT/HCPCS: 99282; 99283

== ENCOUNTER 2021-08-15 12:44 | Emergency (ER) | payer MEDICAID, SELFPAY ==
[2021-08-15 12:54] VITALS: BP 115/68; BP 148/90; PULSE 106; PULSE 83; RESP 18; TEMP 36.8; O2SAT 100; O2SAT 97; BMI 23.5
--- NOTE | 2021-08-15 12:58 | ED_ITS ---
HPI - General Adult General Chief complaint: General Medical Stated complaint: ALTURED MENTAL STATUS, UNKNOWN DRUG USE Time Seen by Provider: 08/15/21 12:54 Source: patient and EMS Mode of arrival: EMS Limitations: no limitations History of Present Illness HPI narrative: 25 yo male with history of substance abuse here with complaints of AMS. Per EMS patient was found outside a friends house walking around, talking out loud about his ex girlfriend. There was concern that the patient was confused and so he was transported to the ER. Patient admitted to nursing he had some alcoholic beverages last evening. He denies any alcohol or substance use today to me. He reports history of taking percocets from friends and using cocaine. He denies current use. He reports feeling tired but tells me I have been walking alot. he tells me has been drinking fluids and eating food. No SI/HI Related Data Allergies Allergy/AdvReac Type Severity Reaction Status Date / Time No Known Allergies Allergy Unverified 11/03/19 16:41 Review of Systems Review of Systems: Yes all other systems are reviewed and are negative Constitutional: Constitutional: Reports no additional constitutional complaints, Denies body ache(s), Denies chills, Denies fever(s), Denies headache(s) and Denies weakness Eyes: Eyes: Reports no additional eye complaints and Denies change in vision ENT: Reports system reviewed and no additional complaints, except as document ed, Denies dizziness, Denies headache(s), Denies nasal congestion, Denies nasal discharge and Denies neck pain Cardiovascular: Cardiovascular: Reports no additional cardiovascular complaints, Denies chest pain, Denies leg edema and Denies dyspnea Respiratory: Respiratory: Reports no additional respiratory complaints, Denies cough and Denies dyspnea Gastrointestinal: Gastrointestinal: Reports no additional gastrointestinal complaints, Denies abdominal pain, Denies diarrhea, Denies nausea and Denies vomiting Genitourinary: Genitourinary: Denies urinary incontinence Musculoskeletal: Musculoskeletal: Reports no additional musculoskeletal complaints, Denies back pain, Denies arthralgias, Denies joint swelling, Denies neck pain, Denies numbness and Denies tingling Integumentary/Breasts: Skin/Breast: Reports system reviewed and no additional complaints, except as docu and Denies rash Neurologic: Reports system reviewed and no additional complaints, except as documented, Denies dizziness, Denies headache(s), Denies numbness, Denies tingli ng and Denies weakness PMF Past Medical History Attestation statement: The following information was validated with the patient. Source: old records reviewed and nursing notes reviewed Social History Social History Advance Directives: No Advance Directives Information Provided: No Physical Exam ED Vital Signs: Vital Signs - 24 hr 08/15/21 12:54 Temperature 98.2 F Pulse Rate 83 Respiratory Rate 18 Blood Pressure 115/68 Pulse Oximetry 97 Oxygen Delivery Method Room Air BMI result Body Mass Index 23.5 Const General: cooperative, healthy appearing, comfortable and no acute distress Orientation/consciousness: patient oriented x3 Limitations: no limitations HENMT Head: Yes normal to inspection Ears: hearing grossly normal bilaterally General nose exam: Normal external nose present Face and sinus: Yes normal facial exam Mouth: Normal oral and palatal mucosa present Teeth and gingiva: dentition normal Throat: Yes posterior oropharynx normal Eyes General: appearance normal, both eyes and all related structures Pupils: Equal, round and reactive pupils present Neck Neck: Yes normal visual inspection Chest Chest palpation & inspection: normal inspection of the chest Resp Effort & Inspection: normal respiratory effort Auscultation: clear to auscultation bilaterally Cardio Rate: regular rate Rhythm: regular rhythm Peripheral pulses: Peripheral pulses 2+ throughout GI Inspection: Yes normal to inspection Palpation (GI): Soft to palpation and nontender Back/Spine/Pelvis Thoracic/Lumbar Spine: thoracic and lumbar spine normal to inspection Skin General skin exam: no rashes or lesions noted Neuro General: patient oriented x3 and moves all extremities Cranial nerves: Yes CN's II-XII intact bilaterally, Yes Equal, round and reactive pupils present, Yes Bilaterally intact EOM present, Yes Nystagmus not present, Yes Normal facial strength present and Yes Midline tongue present Cognition (Neuro): normal cognition Gait exam (Neuro): Normal gait present Motor exam (neuro): 5/5 motor strength present throughout Sensory Exam: Normal double simultaneous stimulation for sensation Extrem General: Yes normal to inspection, Yes no pedal edema and Yes no calf tenderness Course Reevaluation(s) Reevaluation #1: Labs are unremarkable. Patient is clinically sober. He is ambulatory. He is alert and oriented x3. His vitals are stable. There may be some underlying substance use but patient is declining this at this time. He does not wish to speak to refinery operator vapor recovery unit. Therefore will discharge him home. Reviewed worrisome signs and symptoms of when to return to the emergency department. Comfortable discharge home. Time: 14:00 Medical Decision Making MDM Narrative Medical decision making narrative: 25 yo male here with concern for AMS and/or substance abuse. On arrival patient alert and oriented x3. VSS. Normal neuro exam. Denies substance use. +feels tired but no other complaints Will check labs Medical Records Medical records reviewed: Yes I reviewed the patient's medical records. Lab Data Lab results reviewed: Yes I reviewed the patient's lab results. Result diagrams: 08/15/21 13:32 08/15/21 13:32 Labs: Lab Results 08/15/21 08/15/21 Range/Units 13:32 13:32 WBC 4.6 L (4.8-10.8) X10*3/uL RBC 4.71 D (4.60-5.80) X10*6/uL Hgb 13.6 L D (14.0-18.0) g/dl Hct 41.7 L (42.0-52.0) % MCV 88.5 (80.0-98.0) fL MCH 28.9 (27.0-33.0) pg MCHC 32.6 (31.0-36.0) g/dl RDW 13.5 (11.0-16.0) % Plt Count 220 (160-400) X10*3/uL MPV 9.2 L (9.4-12.4) fL Immature Gran % (Auto) 0.2 (0.0-0.4) % Neut % (Auto) 65.6 (45-73) % Lymph % (Auto) 23.4 (20-40) % [place] % (Auto) 10.0 (2-11) % Eos % (Auto) 0.6 (0-4) % Baso % (Auto) 0.2 (0-2) % Lymph # (Auto) 1.1 L (1.2-4.9) X10*3/uL [place] # (Auto) 0.5 (0.1-1.2) X10*3/uL Eos # (Auto) 0.0 (0.0-0.4) X10*3/uL Baso # (Auto) 0.0 (0.0-0.2) X10*3/uL Abs Immat Gran (auto) 0.01 (0.00-0.03) X10*3/uL Absolute Neuts (auto) 3.0 (2.0-8.3) x10*3/uL Absolute Nucleated RBC 0.000 (0.0-0.012) X10*3/uL Nucleated RBC % (auto) 0.0 (0.0-0.2) /100WBC Sodium 138 (135-145) mmol/L Potassium 4.0 (3.3-5.1) mmol/L Chloride 105 (96-108) mmol/L Carbon Dioxide 26 (22-29) mmol/L Anion Gap 11 L (12-20) BUN 16 (9-16) mg/dL Creatinine 0.80 (0.5-1.4) mg/dL Estim Creat Clear Calc 130.8 Estimated GFR > 60 Random Glucose 99 (60-115) mg/dL Calcium 9.5 (8.4-10.2) mg/dL Magnesium 2.2 (1.6-2.6) mg/dL Total Bilirubin 0.5 (0.0-1.0) mg/dL Direct Bilirubin 0.2 (0.0-0.5) mg/dL AST 36 D (5-37) U/L ALT 96 H (0-40) U/L Alkaline Phosphatase 178 H D (39-117) U/L Total Creatine Kinase 139 (38-174) U/L Total Protein 8.1 H (6.5-8.0) g/dL Albumin 4.5 (3.5-5.0) g/dL Discharge Plan Discharge Clinical Impression: Malaise Patient Disposition: Home, Self-Care Instructions: Fatigue (ED) Additional Instructions: Lab work was reassuring Stay well-hydrated Follow-up with primary care doctor Do not use any substances Referrals: Physician,Unknown J [Primary Care Provider] - Interventions: ED Discharge Assessment Last Done: 08/15/21 14:02 Discharge Date/Time: 08/15/21 14:02
[2021-08-15 13:37] LABS: MANUAL DIFF FLAG NO
[2021-08-15 13:38] LABS: Basophils Percent Auto 0.2 % (0-2); Eosinophils Percent Auto 0.6 % (0-4); Hematocrit 41.7 % (42.0-52.0); Hemoglobin 13.6 g/dl (14.0-18.0); Imm Gran Abs Auto 0.01 X10*3/uL (0.00-0.03); Imm Gran Pct Auto 0.2 % (0.0-0.4); Lymphocytes Absolute Auto 1.1 X10*3/uL (1.2-4.9); Lymphocytes Percent Auto 23.4 % (20-40); Mean Corpuscular HGB Conc 32.6 g/dl (31.0-36.0); Mean Corpuscular Hemoglobin 28.9 pg (27.0-33.0); Mean Corpuscular Volume 88.5 fL (80.0-98.0); Mean Platelet Volume 9.2 fL (9.4-12.4); Monocytes Absolute Auto 0.5 X10*3/uL (0.1-1.2); Neutrophils Percent Auto 65.6 % (45-73); Platelet Count 220 X10*3/uL (160-400); Red Blood Count 4.71 X10*6/uL (4.60-5.80); Red Cell Distribution Width 13.5 % (11.0-16.0); White Blood Count 4.6 X10*3/uL (4.8-10.8)
[2021-08-15 13:54] LABS: Alanine Aminotransferase 96 U/L (0-40); Albumin Level 4.5 g/dL (3.5-5.0); Alkaline Phosphatase 178 U/L (39-117); Anion Gap 11 (12-20); Aspartate Amino Transferase 36 U/L (5-37); Bilirubin Direct 0.2 mg/dL (0.0-0.5); Bilirubin Total 0.5 mg/dL (0.0-1.0); Blood Urea Nitrogen 16 mg/dL (9-16); Calcium 9.5 mg/dL (8.4-10.2); Carbon Dioxide 26 mmol/L (22-29); Chloride 105 mmol/L (96-108); Creatinine Clr Calc Pharmacy 130.8; Estimated Glomerular Filt Rate > 60; Glucose Random 99 mg/dL (60-115); Magnesium 2.2 mg/dL (1.6-2.6); Sodium 138 mmol/L (135-145); Total Protein 8.1 g/dL (6.5-8.0)
== END 2021-08-15 14:02 | disposition home or self-care (01) ==
PROVIDERS: Nurse Practitioner Family; Emergency Provider Emergency Medicine
DX: R53.81 Other malaise (principal); F19.10 Other psychoactive substance abuse, uncomplicated; F17.200 Nicotine dependence, unspecified, uncomplicated
CPT/HCPCS: 36415; 80048; 80076; 82550; 83735; 85025; 99282; 99283

== ENCOUNTER 2021-08-20 08:03 | Emergency (ER) | payer MEDICAID, SELFPAY ==
[2021-08-20 08:12] VITALS: BP 124/94; BP 158/100; PULSE 120; PULSE 90; RESP 20; TEMP 36.4; O2SAT 96; O2SAT 98; BMI 22.3
[2021-08-20] MEDS: Ondansetron ODT 4 MG TAB.RAPDIS TRANSLINGU (08:27)
--- NOTE | 2021-08-20 08:32 | ED_ITS ---
HPI - General Adult General Chief complaint: ETOH/Substance Use Stated complaint: od,?heroin vs pcp,no narcan given ooc per ems Time Seen by Provider: 08/20/21 08:32 Source: patient and EMS Mode of arrival: EMS Limitations: no limitations History of Present Illness HPI narrative: 25-year-old male came by ambulance after was found sleeping in the parking lot. Patient admitted that he is homeless today and he used lots of drugs heroin and cocaine very a sniffing an IV, patient declined hitting his head, patient did not require any Narcan, patient do not remember if drink alcohol or not. Patient in the emergency department is been vomiting, no headache or blurry vision. Patient has right leg superficial laceration from falling down with slow bleeding. Related Data Allergies Allergy/AdvReac Type Severity Reaction Status Date / Time No Known Allergies Allergy Unverified 11/03/19 16:41 Review of Systems Review of Systems: All other systems are reviewed and are negative Constitutional: Reports as per HPI and Reports no additional constitutional com plaints Eyes: Reports as per HPI and Reports no additional eye complaints Reports system reviewed and no additional complaints, except as documented Cardiovascular: Reports as per HPI and Reports no additional cardiovascular complaints Respiratory: Reports as per HPI and Reports no additional respiratory complaints Gastrointestinal: Reports as per HPI and Reports no additional gastrointestinal complaints Genitourinary: Reports no additional female genitourinary complaints Musculoskeletal: Reports no additional musculoskeletal complaints Skin/Breast: Reports system reviewed and no additional complaints, except as docu Psychiatric: Reports no additional psychiatric complaints Endocrine: Reports no additional endocrine complaints Hematologic/Lymphatic: Reports no additional hematologic/lymphatic complaints Allergic/Immunologic: Reports no additional allergic/immunologic complaints Reports system reviewed and no additional complaints, except as documented and Reports Abnormal speech present [facility] Social History Social History Advance Directives: No Advance Directives Information Provided: Yes Physical Exam ED Vital Signs: Vital Signs - 24 hr 08/20/21 08:12 Temperature 97.6 F Pulse Rate 90 Respiratory Rate 20 Blood Pressure 124/94 H Pulse Oximetry 96 Oxygen Delivery Method Room Air BMI result Body Mass Index 22.3 Vital signs have been reviewed as appeared to be correct. Blood pressure normal. Heart rate normal. Respiration rate normal. Temperature normal. Oxygen saturation normal. Appearance: Alert. Oriented X3. No acute distress. Head: Normal external exam. Normocephalic. Atraumatic. No Mahajan signs noted. No raccoon eyes noted Eyes: PERRLA. EOMI. Conjunctiva and sclera normal. Eyelids normal. ENT: TM's Normal. Pharynx normal. Uvula midline. Moist mucous membranes. No trismus noted. No drooling noted. No muffled voice noted. Neck: Normal inspection. Neck supple. FROM. No adenopathy. Thyroid Normal. No meningeal signs. No neck mass noted. CVS: Normal heart rate and rhythm. Heart sound normal. No murmurs noted. Pulses normal throughout. Respiratory: No respiratory distress. Painless inspiration. Breath sounds normal. No wheezes/rales/rhonchi noted. Chest nontender. No accessory muscle usage noted or decreased air movement noted. Abdomen: Soft and nontender. Bowel sounds normal in all 4 quadrants. No distention noted. No organomegaly noted. No visible injury noted. Back: No CVA tenderness. Full range of motion noted. Skin: Skin warm and dry. Normal skin color. Normal skin turgor. No rashes/lesions/lacerations noted. Extremities: No lower extremity edema. Extremities exhibit normal range of motion. Extremities nontender. A small superficial abrasion on a right lower leg slow mild bleeding. Neuro: Oriented X 3. Cranial nerve exam: II-XII are grossly intact No motor deficit. No sensory deficit. Reflexes normal. Course Course Course Narrative: 25-year-old male who is homeless, patient was picked up from the street by EMS to the hospital patient admitted to using EDUARD/Augusto and drinking alcohol, patient declined any SI or HI or hallucination. Patient will be going to a friend's house. Patient in the emergency department is ambulating unsteady gait, able to tolerate p.o. intake. Patient also was evaluated by care team patient is declining any help from the team. Will discharge the patient with Narcan to take home. Medical Decision Making Lab Data Labs: Lab Results 08/20/21 Range/Units 08:10 POC Glucose 46 L* (60-115) mg/dL Discharge Plan Discharge Clinical Impression: Multiple substance abuse Patient Disposition: Home, Self-Care Instructions: Polysubstance Abuse (ED) Referrals: Physician,Lorena J [Primary Care Provider] -
[2021-08-20 08:33] LABS: Glucose, Whole Blood 46 mg/dL (60-115)
[2021-08-20 11:54] VITALS: BP 119/61; PULSE 74; O2SAT 95
[2021-08-20] MEDS: Naloxone HCl Nasal TAKE HOME 4 MG SPRAY NOSTRILALT (11:58)
--- NOTE | 2021-08-20 12:45 | MHC.RECOVRN ---
Met with pt in ED20 prior to discharge to discuss substance use. Pt difficult to engage in conversation due to flight of ideas. Pt reports PCP use, IN, as well as hx heroin use when I can. Pt does not appear to be under the influence of opiates, nor does pt appear in withdrawal from opiates. Pt pacing and stating I just need my phone and a job and I'll be good. Pt declines recovery support at this time. Pt states I need meds for herpes. I was with a girl and now I have this on my lip. Pt pointing to lip, there does not appear to be any lesions. Pt does not have other questions or concerns for t/w at this time. Discussed with provider.
== END 2021-08-20 12:21 | disposition home or self-care (01) ==
PROVIDERS: Emergency Provider Emergency Medicine
DX: F11.19 Opioid abuse with unspecified opioid-induced disorder (principal); F14.19 Cocaine abuse with unspecified cocaine-induced disorder; Z71.51 Drug abuse counseling and surveillance of drug abuser
CPT/HCPCS: 82947; 99284; 99285

== ENCOUNTER 2021-08-20 13:05 | Emergency (ER) | payer MEDICAID, SELFPAY ==
--- NOTE | 2021-08-20 13:22 | ED_ITS ---
HPI - Psych General Chief Complaint: ETOH/Substance Use Stated Complaint: PHYS EVAL Time Seen by Provider: 08/20/21 13:22 Source: patient and old records reviewed Mode of arrival: EMS Limitations: no limitations History of Present Illness HPI Narrative: 25 yo male seen earlier today declined rehab used PCP then went [facility] was sweaty, twitchy, scratched his arms and stomach thinking he was being chased. complaint: substance abuse Onset (ago): week(s) Duration: intermittent History of same: Yes Relieving factors: none Exacerbating factors: drug use Context: recent drug abuse Associated psychiatric symptoms: none Associated symptoms: other (scratch romero to arms and chest states he thought he was being chased) Treatments prior to arrival: none Related Data Allergies Allergy/AdvReac Type Severity Reaction Status Date / Time No Known Allergies Allergy Unverified 11/03/19 16:41 Review of Systems Review of Systems: Constitutional : No Fever, No Chills ENT/Mouth : No Ear Pain, No Nasal Congestion, No sore throat Eyes: No Eye Pain, No Swelling, No Redness Cardiovascular : No Chest Pain, No SOB Respiratory : No Cough, No Sputum, No Dyspnea Gastrointestinal : No Nausea, No Vomiting, No Diarrhea, No Hematochezia, No Melena Genitourinary : No Dysuria, No Urinary Frequency, No Hematuria Musculoskeletal : No Myalgias Skin : No Skin Lesions, No rash Neuro : No Weakness, No Numbness, No Paresthesias, No Dizziness, No Headache Psych : positive Anxiety, no Depression, no SI/HI Heme/Lymph: No Lymphadenopathy Endocrine : No Polyuria, No Polydipsia All other systems reviewed and are negative [facility] Past Medical History Medical History Multiple substance abuse Social History Social History (Updated 08/20/21 @ 13:36 by Kathi Anaya DO) Patient Tobacco Use Status: Current someday Tobacco user Use of substances other than those prescribed or required for medical reasons: Yes Substance Use Type: Other Advance Directives: No Advance Directives Information Provided: Yes Physical Exam Vital Signs: Vital Signs: Last Vital Signs Temp 97.6 F 08/20/21 16:09 Pulse 80 08/20/21 16:09 Resp 20 08/20/21 16:09 BP 139/95 H 08/20/21 16:09 Pulse Ox 100 08/20/21 16:09 O2 Del Method 08/20/21 16:09 BMI result Body Mass Index 18.8 Appearance: Alert. Oriented X3. Anxious eating BBQ chips, pacing mild acute distress. Eyes: Pupils equal, round and reactive to light. no nystagmus seen ENT: Pharynx normal. Neck: Normal inspection. Neck supple. CVS: Normal heart rate and rhythm. Pulses normal. Respiratory: No respiratory distress. Breath sounds normal. Abdomen: Soft and non-tender. Skin: Skin warm and diaphoretic Normal skin color. Normal skin turgor. superficial linear scratch romero on abdomen and both upper arms Extremities: No lower extremity edema. No calf ttp Neuro: Oriented X 3. No motor deficit. No sensory deficit. Course Course Course Narrative: Patient placed in physician observation at 446pm. The indication for observation is that the patient needs more time for placement at [facility] 11pm per CARE team. At this time the patient is well developed well nourished, lungs clear, CV RRR, abd nontender, neuro is intact. MDM - Psych MDM Narrative Medical decision making narrative: 25 yo male with hx of substance abuse left here used PCP went [facility] - at this time he is sweaty, pacing, anxious. Will offer PO ativan and metabolize, recovery coaches involved at this time Lab Data Labs: Lab Results 08/20/21 Range/Units 13:41 Urine Opiates Screen Not Detected (Not Detect) Urine Fentanyl Screen POSITIVE H (Not Detect) Ur Barbiturates Screen Not Detected (Not Detect) Ur Phencyclidine Scrn POSITIVE H (Not Detect) Ur Amphetamines Screen Not Detected (Not Detect) U Benzodiazepines Scrn Not Detected (Not Detect) Urine Cocaine Screen POSITIVE H (Not Detect) U Marijuana (THC) Screen POSITIVE H (Not Detect) Discharge Plan Discharge Clinical Impression: PCP abuse, Polysubstance abuse Patient Disposition: Still a Patient Instructions: Polysubstance Abuse (ED) Additional Instructions: return to ED for any worsening symptoms or concerns please go to [facility] detox
[2021-08-20 13:37] VITALS: RESP 18; BMI 18.8
--- NOTE | 2021-08-20 13:38 | PC.NURSE ---
UNABLE TO GET VITALS AT THIS TIME. PT UNABLE TO STAY STILL.
[2021-08-20] MEDS: LORazepam 1 MG TABLET 2 MG PO (13:50)
[2021-08-20 14:08] LABS: Amphetamine Screen Urine Not Detected (Not Detect); Barbiturates, Urine Not Detected (Not Detect); Benzodiazepines Screen Urine Not Detected (Not Detect); Cannabinoid Screen Urine POSITIVE (Not Detect); Cocaine Screen Urine POSITIVE (Not Detect); Fentanyl, urine POSITIVE (Not Detect); Opiate Screen Urine Not Detected (Not Detect); Phencyclidine Screen Urine POSITIVE (Not Detect)
--- NOTE | 2021-08-20 14:41 | MHC.RECOVRN ---
Pt interested in ATS. [facility] does not have bed availability. Unknown if [facility] has availability, referral sent regardless, awaiting a call back.
--- NOTE | 2021-08-20 15:01 | PC.NURSE ---
Seen by Jenise who is assisting patient to find a detox facility.
--- NOTE | 2021-08-20 15:34 | MHC.RECOVRN ---
Bed available at [facility]. Awaiting review.
[2021-08-20 16:09] VITALS: BP 139/95; PULSE 80; RESP 20; TEMP 36.4; O2SAT 100
--- NOTE | 2021-08-20 16:14 | MHC.CARE ---
Admission scheduled for 11pm. CARE team will assist with transport to [facility].
--- NOTE | 2021-08-20 21:17 | MHC.CARE ---
During his phone intake with Cyndie the pt reported that he just did PCP and that he was hallucinating about demons. [facility]die cancelled admission. Pt will discharge home with plan to follow up with [facility] in the morning.
[2021-08-20 21:41] VITALS: BP 128/74; PULSE 95; RESP 14; TEMP 36.8; O2SAT 97
== END 2021-08-20 21:40 | disposition home or self-care (01) ==
PROVIDERS: Emergency Provider Emergency Medicine
DX: F11.150 Opioid abuse with opioid-induced psychotic disorder with delusions (principal); F14.10 Cocaine abuse, uncomplicated; F12.10 Cannabis abuse, uncomplicated; F17.200 Nicotine dependence, unspecified, uncomplicated; Z71.6 Tobacco abuse counseling; Z79.899 Other long term (current) drug therapy
CPT/HCPCS: 80307; 99285

== ENCOUNTER 2021-10-24 12:56 | Emergency (ER) | payer MEDICAID, SELFPAY ==
[2021-10-24] VITALS (11 sets, daily range): BP systolic 108–173; BP diastolic 60–80; PULSE 68–106; RESP 14–18; TEMP 36.1–37; O2SAT 93–98; BMI 24.5
[2021-10-24] MEDS: Haloperidol Lactate 5 MG/ML VIAL IM (16:25)
[2021-10-24] MEDS: Midazolam HCl/PF 2 MG/2 ML VIAL IM (16:25)
[2021-10-24] MEDS: diphenhydrAMINE HCL 50 MG/ML VIAL 25 MG IM (16:25)
--- NOTE | 2021-10-24 17:43 | ED.AMS ---
HPI - Altered Mental Status General Chief Complaint: ETOH/Substance Use Stated Complaint: Heroin Time Seen by Provider: 10/24/21 13:27 Source: EMS Mode of arrival: EMS Limitations: altered mental status History of Present Illness HPI narrative: 26-year-old male who was brought to the emergency department by ambulance for evaluation of altered mental status. The patient states he took area when 45 minutes prior to EMS arrival. The patient was diaphoretic and making very retic movements. He was shaking, he was making clicking noises with his mouth. He was talking to himself. The patient was not able answer questions. The patient has been seen in the emergency department in the past for polysubstance abuse. Related Data Allergies Allergy/AdvReac Type Severity Reaction Status Date / Time No Known Allergies Allergy Unverified 11/03/19 16:41 Review of Systems Review of Systems: Yes Unobtainable due to mental status PMFSH Past Medical History PMFSH Narrative: Past medical history: Polysubstance use disorder-heroin and cocaine Medical History Multiple substance abuse Social History Social History Patient Tobacco Use Status: Current someday Tobacco user Substance Use Type: Other Advance Directives: No Physical Exam ED Vital Signs: Vital Signs - 24 hr 10/24/21 13:14 10/24/21 14:43 10/24/21 16:25 Temperature 98.6 F Pulse Rate 106 H Respiratory Rate 16 18 16 Blood Pressure 173/80 H Pulse Oximetry 95 Oxygen Delivery Method Room Air 10/24/21 16:40 Temperature Pulse Rate Respiratory Rate 16 Blood Pressure Pulse Oximetry Oxygen Delivery Method BMI result Body Mass Index 24.5 Const Other: Patient is diaphoretic, he is agitated, he is making strange movements with his arms and his face, he is shouting, he is talking to himself HENAZ Head: Yes normal to inspection, Yes normocephalic and Yes atraumatic Ears: external ears normal General nose exam: Normal external nose present Face and sinus: Yes normal facial exam Mouth: Normal oral and palatal mucosa present Throat: Yes posterior oropharynx normal Eyes General: appearance normal, both eyes and all related structures Neck Neck: Yes normal visual inspection, Yes no lymphadenopathy, Yes trachea midline and Yes supple Chest Chest palpation & inspection: normal inspection of the chest and normal palpation of entire chest wall Resp Effort & Inspection: normal respiratory effort and able to speak in complete sentences Auscultation: clear to auscultation bilaterally Cardio Rate: tachycardic Rhythm: regular rhythm Heart sounds: S1 normal heart sound present, S2 normal heart sound present and no murmurs GI Inspection: Yes normal to inspection Palpation (GI): Soft to palpation, nontender and no guarding Auscultation: normal bowel sounds General: Yes no CVA tenderness Back/Spine/Pelvis Back: no CVA tenderness Skin General skin exam: no rashes or lesions noted Neuro Cranial nerves: Yes CN's II-XII intact bilaterally Motor exam (neuro): 5/5 motor strength present throughout Extrem General: Yes normal to inspection Course Course Course Narrative: 26-year-old male who presents emergency department for evaluation an adverse reaction to using heroin. The patient is agitated and diaphoretic, he is yelling and talking to himself. I was concerned that the patient with hurt himself or others therefore ordered to get Haldol 5 mg IM, Benadryl 25 mg IM and Versed 2 mg IM. Laboratory evaluation was ordered. An IV was established the patient be treated with normal saline IV. At the end of my shift, the patient's laboratory evaluation was pending. Patient's care was turned over to my colleague, Dr. Hernandez Discharge Plan Discharge Clinical Impression: Polysubstance (excluding opioids) dependence, daily use, Acute alteration in mental status, Agitation Patient Disposition: Still a Patient
[2021-10-24] MEDS: 0.9 % Sodium Chloride 1,000 ML 999 ML IV (17:52)
[2021-10-24 17:57] LABS: MANUAL DIFF FLAG NO
--- NOTE | 2021-10-24 17:59 | PC.NURSE ---
IV inserted and blood taken. Pt OOB to BR and cooperative at this time.
[2021-10-24 18:03] LABS: Basophils Percent Auto 0.2 % (0-2); Eosinophils Percent Auto 0.3 % (0-4); Hematocrit 39.1 % (42.0-52.0); Hemoglobin 13.3 g/dl (14.0-18.0); Imm Gran Abs Auto 0.06 X10*3/uL (0.00-0.03); Imm Gran Pct Auto 0.4 % (0.0-0.4); Lymphocytes Percent Auto 12.8 % (20-40); Mean Corpuscular Volume 85.2 fL (80.0-98.0); Mean Platelet Volume 9.7 fL (9.4-12.4); Monocytes Percent Auto 6.3 % (2-11); Neutrophils Absolute Auto 12.7 x10*3/uL (2.0-8.3); Platelet Count 270 X10*3/uL (160-400); Red Blood Count 4.59 X10*6/uL (4.60-5.80); Red Cell Distribution Width 12.4 % (11.0-16.0); White Blood Count 15.8 X10*3/uL (4.8-10.8)
[2021-10-24 18:05] LABS: Appearance Urine Clear; Color Urine Yellow; Glucose Urine UA Negative (Negative); Leukocyte Esterase Urine Negative (Negative); Nitrite Urine Negative (Negative); PH 6.5 (5.0-9.0); Prothrombin Time 11.9 SEC (10.0-13.1); Urine Blood Trace (Negative); Urine Ketones 15 mg/dL (Negative); Urine Protein Negative (Neg-Trace)
[2021-10-24 18:07] LABS: Partial Thromboplastin Time 30.2 SEC (26.0-36.4)
[2021-10-24 18:15] LABS: Lactic Acid 0.7 mmol/L (0.5-2.0)
[2021-10-24 18:17] LABS: COVID-19 Test Negative (Negative); IDNOW Serial# 16C4AD1C
[2021-10-24 18:20] LABS: Alanine Aminotransferase 20 U/L (0-40); Albumin Level 4.1 g/dL (3.5-5.0); Alkaline Phosphatase 178 U/L (39-117); Anion Gap 18 (12-20); Aspartate Amino Transferase 52 U/L (5-37); Bilirubin Total 0.8 mg/dL (0.0-1.0); Blood Urea Nitrogen 16 mg/dL (9-16); Calcium 9.1 mg/dL (8.4-10.2); Carbon Dioxide 24 mmol/L (22-29); Chloride 97 mmol/L (96-108); Creatinine Clr Calc Pharmacy 98.8; Estimated Glomerular Filt Rate > 60; Ethanol < 10 mg/dL; Glucose Random 84 mg/dL (60-115); Lipase 13 U/L (8-78); Potassium 4.3 mmol/L (3.3-5.1); Sodium 135 mmol/L (135-145); Troponin-I High Sensitivity 33.3 ng/L (<3.5-35.0)
[2021-10-24 18:22] LABS: Bacteria Urine None Seen (None Seen); Hyaline Casts Urine 0-2 /LPF (0-2); RBC Urine 0-2 /HPF (0-2); Squamous Epithelial Cell Urine 0-2 /HPF (0-2); WBC Urine 0-5 /HPF (0-5)
[2021-10-24 18:23] LABS: Amphetamine Screen Urine Not Detected (Not Detect); Barbiturates, Urine Not Detected (Not Detect); Benzodiazepines Screen Urine POSITIVE (Not Detect); Cannabinoid Screen Urine POSITIVE (Not Detect); Cocaine Screen Urine POSITIVE (Not Detect); Fentanyl, urine POSITIVE (Not Detect); Opiate Screen Urine Not Detected (Not Detect); Phencyclidine Screen Urine Not Detected (Not Detect)
--- NOTE | 2021-10-24 21:17 | MHC.RECOVSUP ---
? Reason for consult:OPI o Current location:ED06H o Identified substance use concern: - Seeking ATS (detox) - Support ? Intervention: o ATS bed search started/completed/in process ? Plan: o Follow up tomorrow ? Additional information:[facility] spoke to pt briefly, he said yes to detox, but RC wasn't able to find a bed anywhere. Please follow up tomorrow.
--- NOTE | 2021-10-25 04:34 | PC.NURSE ---
Reports received and care assumed at 0300. Since RN arrival pt found to be resting comfortably in stretcher without distress noted, respirations even and unlabored. Pt is calm without need for sitter and/or constant obs. Pt with urinal available as needed adn RN will continue to monitor to ensure needs are met.
--- NOTE | 2021-10-25 08:54 | MHC.CARE ---
CARE Team met with Pt who declines interest in recovery resources/ referrals.
[2021-10-25 10:06] VITALS: BP 127/75; PULSE 100; RESP 16; O2SAT 96
== END 2021-10-25 10:10 | disposition home or self-care (01) ==
PROVIDERS: Emergency Provider Emergency Medicine Emergency Medical Services
DX: F11.250 Opioid dependence with opioid-induced psychotic disorder with delusions (principal); R41.82 Altered mental status, unspecified; F17.200 Nicotine dependence, unspecified, uncomplicated; Z20.822 Contact with and (suspected) exposure to COVID-19; Z71.6 Tobacco abuse counseling; Z79.899 Other long term (current) drug therapy
CPT/HCPCS: 80053; 80307; 81001; 82077; 83605; 83690; 84484; 85025; 85610; 85730; 87635; 96360; 96361; 96372; 99284; 99285; J1200; J2250

== ENCOUNTER 2021-11-14 19:43 | Emergency (ER) | payer MEDICAID, SELFPAY ==
[2021-11-14] VITALS (7 sets, daily range): BP systolic 121–140; BP diastolic 69–102; PULSE 70–118; RESP 14–29; TEMP 37.2; O2SAT 97–100; BMI 24.0
--- NOTE | 2021-11-14 20:01 | ED.PSYCH ---
HPI - Psych General Chief Complaint: ETOH/Substance Use Stated Complaint: drug use Time Seen by Provider: 11/15/21 01:19 Source: patient and EMS Mode of arrival: EMS Limitations: altered mental status (Intoxicated) History of Present Illness HPI Narrative: 26-year-old male presents via EMS for drug abuse. MD complaint: altered mental status and substance abuse Onset (ago): year(s) History of same: Yes Context: recent drug abuse Related Data Allergies Allergy/AdvReac Type Severity Reaction Status Date / Time No Known Allergies Allergy Verified 11/14/21 20:04 Review of Systems Review of Systems: Yes Unobtainable due to mental status PMFSH Past Medical History Attestation statement: The following information was validated with the patient. Source: old records reviewed Medical History Multiple substance abuse Social History Social History Patient Tobacco Use Status: Current someday Tobacco user Substance Use Type: Other Advance Directives: No Advance Directives Information Provided: No Physical Exam Vital Signs: Vital Signs: Last Vital Signs Temp 98.9 F 11/14/21 20:06 Pulse 88 11/15/21 00:08 Resp 15 11/15/21 00:08 BP 116/64 11/15/21 00:08 Pulse Ox 96 11/15/21 00:08 O2 Del Method 11/15/21 00:08 BMI result Body Mass Index 24.0 Appearance: Alert. Intoxicated Eyes: Pupils equal, round and reactive to light. ENT: Pharynx normal. Neck: Normal inspection. Neck supple. CVS: Tachycardic heart rate and rhythm. Respiratory: No respiratory distress. Breath sounds normal. Abdomen: Soft and nontender. Skin: Skin warm and dry. Normal skin color. Normal skin turgor. Extremities: No lower extremity edema. Gait balanced. Neuro: No motor deficit. No sensory deficit. Cranial nerves 2-12 intact. Course Course Course Narrative: 26-year-old male presents via EMS for PCP, marijuana, and alcohol intoxication. Patient does report using PCP with his marijuana on a regular basis. Patient is able to answer paretic questions, unable to keep his arms and legs still, speaking gibberish at times, slapping his hands on his face and chest. Patient is unable to be redirected. At this time I feel that this patient requires IM sedation for his safety. 20:30 patient sleeping, even unlabored respirations, repositioning self as needed. 22:30 patient continues to sleep, even unlabored respirations, O2 sat 99% on room air. 01:16 physician observation started. Metabolize to freedom. MDM - Psych Differential Diagnosis Differential diagnosis: Likely acute psychosis, drug-induced psychotic disorder and substance abuse Medical Records Attestation: I reviewed the patient's medical records. Discharge Plan Discharge Clinical Impression: Polysubstance (excluding opioids) dependence, daily use Patient Disposition: Still a Patient Instructions: Polysubstance Abuse (ED) Additional Instructions: Consider detox. Thank you for choosing this emergency department for evaluation. Please follow-up with primary care physician as needed. Return to the emergency department for any new, concerning, or worsening symptoms.
[2021-11-14] MEDS: diazePAM 10 MG/2 ML CARTRIDGE 5 MG IM (20:32)
--- NOTE | 2021-11-14 21:05 | PC.NURSE ---
sleeping comfortably, equal chest rise/fall. On continuous oxygen monitoring.
[2021-11-15 00:08] VITALS: BP 116/64; PULSE 88; RESP 15; O2SAT 96
--- NOTE | 2021-11-15 00:09 | PC.NURSE ---
Patient sleeping comfortably, moves position freely, Respirations equal and nonlabored
[2021-11-15 01:36] VITALS: BP 114/63; PULSE 76; RESP 15; O2SAT 99
[2021-11-15 02:43] VITALS: BP 111/58; PULSE 77; RESP 17; O2SAT 100
[2021-11-15 04:00] VITALS: BP 118/65; PULSE 70; RESP 15; O2SAT 97
--- NOTE | 2021-11-15 05:51 | PC.NURSE ---
PT WOKE UP DURING VITALS, PT REQUESTED TO USE BR , PT WALKED TO NEAREST BR WITH ASSISTANCE, URINE COLLECTED AND PLACED BEHIND BED. PT ASSISTED BACK TO BED AND GIVEN A CLEAN GOWN AND WARM BLANKET. PT BELONGINGS (1 CREAM SHIRT, 1 PAIR OF BLUE SNEAKERS ) PLACED IN PERSONAL BELONGINGS BAG AND PUT BEHIND PT BED
[2021-11-15 05:55] VITALS: BP 132/80; PULSE 79; RESP 18; TEMP 36.4; O2SAT 98
--- NOTE | 2021-11-15 06:14 | PC.NURSE ---
Patient ate breakfast then d/c'd home. ambulatory to with security to obtain clothing and change. Patient Aox3
== END 2021-11-15 06:15 | disposition still patient (30) ==
PROVIDERS: Emergency Provider Internal Medicine
DX: F19.20 Other psychoactive substance dependence, uncomplicated (principal); F17.200 Nicotine dependence, unspecified, uncomplicated
CPT/HCPCS: 96372; 99283; 99284; J3360

== ENCOUNTER 2021-11-24 05:07 | Emergency (ER) | payer MEDICAID, SELFPAY ==
[2021-11-24 05:12] VITALS: BP 164/101; PULSE 107
[2021-11-24 05:19] VITALS: BP 164/101; PULSE 107; RESP 20; BMI 23.0
--- NOTE | 2021-11-24 05:32 | ED.PSYCH ---
HPI - Psych General Chief Complaint: Psychiatric Symptoms Stated Complaint: OVERDOSE Time Seen by Provider: 11/24/21 05:30 Source: EMS Mode of arrival: EMS Limitations: altered mental status History of Present Illness HPI Narrative: Patient comes to the emergency room via ambulance. Patient was found by police department hyperverbal, slapping his face and his penis, yelling, speaking gibberish. Patient was seen here approximately 10 days ago for the same issue. Patient is known to use opiates, fentanyl, PCP, benzodiazepines, cocaine and marijuana Related Data Allergies Allergy/AdvReac Type Severity Reaction Status Date / Time No Known Allergies Allergy Verified 11/14/21 20:04 [facility] Past Medical History Medical History Multiple substance abuse Social History Social History Patient Tobacco Use Status: Current someday Tobacco user Substance Use Type: Other Physical Exam Vital Signs: Vital Signs: Last Vital Signs Pulse 107 H 11/24/21 05:19 Resp 20 11/24/21 05:19 BP 164/101 H 11/24/21 05:19 BMI result Body Mass Index 23.0 Const: Other: Appearance: Alert. Oriented x2, very agitated Eyes: Pupils equal, round and reactive to light. ENT: Pharynx normal. Neck: Normal inspection. Neck supple. No lymph nodes noted. No crepitus CVS: Normal heart rate and rhythm. Pulses normal. Normal S1 and S2 Respiratory: No respiratory distress. Breath sounds normal. No Wheezing. No rales Abdomen: Soft and nontender. No rigidity. No distention. Skin: Skin is clammy, patient is diaphoretic Extremities: No lower extremity edema. No Lacerations. No Rash Neuro: No motor deficit. No sensory deficit. Moving all extremities. No slurred speech. CN 2 through 12 grossly intact Psych: Very altered, speaking gibberish, slapping his face chest abdomen and groin Course Course Course Narrative: Patient has had multiple ER admissions for similar presentation. Patient asked for water. Patient is chewing the glass and hurting his gums and making himself bleed. We are unable to redirect the patient, patient is too altered, nearly falling out of bed. Patient was given Haldol 5 mg, Benadryl 50 mg, and Geodon 20 mg. Discharge Plan Discharge Clinical Impression: Polysubstance (excluding opioids) dependence, daily use Patient Disposition: Still a Patient
[2021-11-24] MEDS: Haloperidol Lactate 5 MG/ML VIAL IM (05:36)
[2021-11-24] MEDS: diphenhydrAMINE HCL 50 MG/ML VIAL IM (05:36)
[2021-11-24] MEDS: Ziprasidone Mesylate 20 MG VIAL IM (05:36)
--- NOTE | 2021-11-24 05:54 | PC.NURSE ---
Pt. on hallway bed, making lots of noises and moving around on bed. Pt. needed to use bathroom. Pt. self-induced vomiting. Pt. put hands in toilet water, tried to drink some soap and drink water from the faucet. Medicated with meds per the MAR.
--- NOTE | 2021-11-24 06:37 | PC.NURSE ---
Pt. monitored for an hour following chemical restraint. Pt. sleeping in hallway bed. VSS.
[2021-11-24 13:11] VITALS: BP 119/66; PULSE 70; TEMP 36.6; O2SAT 100
--- NOTE | 2021-11-24 13:45 | HO.SUDE ---
T/W met w/ pt. Pt sleeping, awake to verbal stimuli, difficult to engage at this time, falling asleep. Pt reports CRACK/LORETTA, Heroin use daily. Pt reports snorting a few bags daily heroin and LORETTA use smoking for the past while . Pt acknowledges has narcan, knows how to use it. Pt reports has not overdosed in the past. Pt states not sure if has been on MAT in the past. Pt states not sure if has been through levels of OBIE treatment in the past. T/W asked if pt interested in detox/treatment/recovery resources pt states not sure, is feeling tired. Pt difficult to engage. Provider aware.
[2021-11-24] MEDS: Naloxone HCl Nasal TAKE HOME 4 MG SPRAY NOSTRILALT (14:24)
== END 2021-11-24 14:28 | disposition home or self-care (01) ==
PROVIDERS: Emergency Provider Emergency Medicine
DX: T40.1X1A Poisoning by heroin, accidental (unintentional), initial encounter (principal); Y92.9 Unspecified place or not applicable; F11.250 Opioid dependence with opioid-induced psychotic disorder with delusions; F14.29 Cocaine dependence with unspecified cocaine-induced disorder; Z71.51 Drug abuse counseling and surveillance of drug abuser
CPT/HCPCS: 96372; 99283; 99284; J1200; J3486